=== PATIENT | female | born 1940 | race Caucasian/White ===

== ENCOUNTER → 2016-10-18 16:33 | Outpatient (CLI) | payer MEDICARE, OTHER ==
[2010-06-16 07:04] VITALS: BMI 38.5
[~2016-10-18 16:33] MED LIST: CIPRO500 MG PO; DESERYL100 MG PO; DILAUDID2 MG PO; EFFEXOR37.5 MG PO; GLUCOPHAGE500 MG PO; LISINOPRIL5 MG PO; MACROBID100 MG; NEXIUM40 MG PO; PEPCID AC20 MG PO; PROTONIX40 MG PO; ZOCOR40 MG PO
[2016-12-07 08:21] VITALS: BMI 35.4
== END | disposition home or self-care (01) ==
LOC: D.MAMMO 13:45
DX: Z12.31 Encounter for screening mammogram for malignant neoplasm of breast (principal)

== ENCOUNTER 2016-12-07 06:54 | Day surgery (SDC) | payer MEDICARE, OTHER ==
[~2016-12-07] VITALS: Ht 154.9 cm; Wt 84.8 kg
[2016-12-07 08:04] LABS: HEMATOCRIT 43.5 % (36.0-48.0); HEMOGLOBIN 14.3 g/dL (12-16); MCH 29.3 pg (26.0-34.0); MCHC 32.9 g/dL (31.0-37.0); MCV 89.1 fL (80.0-100.0); MEAN PLATELET VOLUME 10.8 fL (7.4-10.4); RBC 4.88 10x6/uL (4.00-5.40); RDW 15.5 % (11.5-14.5); WBC 11.3 10x3/uL (4.8-10.8)
[2016-12-07 08:15] LABS: CALC OSMOLALITY 286 mosm/kg (275-300); CALCIUM 9.1 mg/dL (8.5-10.1); CARBON DIOXIDE 30.1 mmol/L (21.0-32.0); CHLORIDE - SERUM 105 mmol/L (98-107); CREATININE - SERUM 0.7 mg/dL (0.6-1.3); GLUCOSE 187 mg/dL (74-106); POTASSIUM - SERUM 4.1 mmol/L (3.5-5.1); SODIUM 141 mmol/L (136-145); UREA NITROGEN 14 mg/dL (7-18); eGFR NON AFRICAN AMERICAN 86 mL/min (90-120)
[2016-12-07 08:21] VITALS: BP 121/68; Ht 154.9 cm; Wt 84.8 kg
[2016-12-07] MEDS ORDERED: NEXIUM40 MG PO (08:38)
[2016-12-07] MEDS ORDERED: PROTONIX40 MG PO (08:38)
[2016-12-07] MEDS ORDERED: LISINOPRIL5 MG PO (08:39)
[2016-12-07] MEDS ORDERED: MACROBID100 MG (08:40)
[2016-12-07] MEDS ORDERED: GLUCOPHAGE500 MG PO (08:40)
[2016-12-07] MEDS ORDERED: EFFEXOR37.5 MG PO (08:41)
[2016-12-07] MEDS ORDERED: CIPRO500 MG PO (08:41)
[2016-12-07] MEDS ORDERED: PEPCID AC20 MG PO (08:42)
[2016-12-07] MEDS ORDERED: DESERYL100 MG PO (08:42)
[2016-12-07] MEDS ORDERED: ZOCOR40 MG PO (08:43)
[2016-12-07] MEDS ORDERED: DILAUDID2 MG PO (09:53)
--- NOTE | 2016-12-07 10:17 | NUR ---
THE PATIENT REQUESTS A SHORT RECOVERY STAY SO SHE CAN GO HOME.
--- NOTE | 2016-12-07 10:47 | NUR ---
1040 DAUGHTER HAS RETURNED TO ROOM. DR. BREEN PAGED AND RETURNED CALL AND SPOKE WITH DAUGHTER.
--- NOTE | 2016-12-16 13:21 | OP ---
PATIENT NAME: RADHA LOCKE MEDICAL RECORD: [id number] :41 LOCATION:D.OPS ADMISSION DATE: SURGEON: MACY BREEN MD DATE OF OPERATION: 12/07/2016 PREOPERATIVE DIAGNOSES: 1. Right labial abscess. 2. Diabetes mellitus. 3. Gastroesophageal reflux disease. 4. Hypertension. 5. Hypercholesterolemia. POSTOPERATIVE DIAGNOSES: 1. Right labial abscess. 2. Diabetes mellitus. 3. Gastroesophageal reflux disease. 4. Hypertension. 5. Hypercholesterolemia. PROCEDURE: I&D of right labia. SURGEON: Macy Breen MD. REPORT OF PROCEDURE: The patient's right labia was prepped and draped in sterile fashion. The patient had a previous I&D by her primary care physician and there is a longitudinal incision over the right labia. There were some fibrinous bands across this and these were opened up using a hemostat. As we penetrated into the wound cavity, I found no evidence of any purulent material. I was able to dilate the wound open up to where I can get my pinky finger in and then I was able to feel around. There was just a lot of inflammatory cellulitis, but no sign of any purulence or separate pus pocket. We irrigated out the wound thoroughly with peroxide and saline solution and then packed it with half-inch packing strips. COMPLICATIONS: None. CONDITION: Stable. ANESTHESIA: General endotracheal. BLOOD LOSS: Minimal. TRANSINT:[id number] Voice Confirmation ID: [id number] DOCUMENT ID: [id number] MACY BREEN MD at 1321 CC: KALINA AGUILAR DO [id number] DICTATION DATE: 12/07/16 0956 AUDIO PRODUCTION INSTRUCTOR: 12/07/16 1026 [facility] 12/07/16 [place] [id number]
== END 2016-12-07 14:50 | disposition home or self-care (01) ==
LOC: D.OPS 06:54
PROVIDERS: Anesthesiology
DX: N76.4 Abscess of vulva (principal); E11.9 Type 2 diabetes mellitus without complications; K21.9 Gastro-esophageal reflux disease without esophagitis; I10 Essential (primary) hypertension; E78.00 Pure hypercholesterolemia, unspecified

== ENCOUNTER 2017-08-01 08:00 | Day surgery (SDC) | payer MEDICARE, OTHER ==
[~2017-08-01] VITALS: Ht 157.5 cm; Wt 86.2 kg
[~2017-08-01 08:00] MED LIST changes: +CALCIUM 600 +1 EAC3 PO; -DESERYL100 MG PO; -EFFEXOR37.5 MG PO; +EFFEXOR75 MG PO; +JANUMET 50-1,001 TAB PO; +MAGNESIUM OXID500 MG PO; +OMEPRAZOLE20 M1 PO; +REMERON15 MG PO; +TRAZODONE HCL50 MG PO; +VITAMIN B-121000 MCG PO; +VITAMIN B-6100 MG PO; +VITAMIN D31000 UNIT PO
[2017-08-01 09:34] VITALS: BP 119/78; Ht 157.5 cm; Wt 86.2 kg
[2017-08-01 09:52] LABS: BASOPHILS 0.8 % (0-2); EOSINOPHILS 0.9 % (0-7); HEMATOCRIT 43.8 % (36.0-48.0); HEMOGLOBIN 14.9 g/dL (12-16); IMMATURE GRANULOCYTES 0.3 % (0-5); LYMPHOCYTES 31.2 % (15-50); MCH 30.7 pg (26.0-34.0); MCV 90.1 fL (80.0-100.0); MEAN PLATELET VOLUME 13.6 fL (7.4-10.4); MONOCYTES 8.7 % (2-11); NEUTROPHILS 58.1 % (40-80); PLATELET COUNT 385 10x3/uL (130-400); RBC 4.86 10x6/uL (4.00-5.40); RDW 15.9 % (11.5-14.5); WBC 9.9 10x3/uL (4.8-10.8)
[2017-08-01] MEDS ORDERED: DILAUDID2 MG PO (10:52)
--- NOTE | 2017-08-01 12:25 | NUR ---
DILAUDID 2 MG PO GIVEN FOR PAIN. TOLERATED FULL LIQ DIET.
--- NOTE | 2017-08-01 14:07 | NUR ---
1355 DRESSED. AWAKE & ALERT. GIVEN RX: DILAUDID 2MG PO, MED REC., RTC APPT., [facility] OPS D/C INSTRUCTIONS. PROVIDED WITH SITZ BATH & INSTRUCTED HOW TO USE IT. PT VOICED UNDERSTANDING OF D/C INSTRUCTIONS. TO PRIVATE CAR PER WHEELCHAIR BY VOLUNTEER. HOME WITH , MR. LOCKE. Melissa BROWNE R.N.
--- NOTE | 2017-08-01 14:51 | OP ---
PATIENT NAME: RADHA LOCKE MEDICAL RECORD: [id number] :41 LOCATION:D.OPS ADMISSION DATE: SURGEON: KAVEH BREEN MD DATE OF OPERATION: 08/01/2017 PREOPERATIVE DIAGNOSES: 1. Internal hemorrhoids. 2. Anal condyloma. 3. Fibromyalgia. 4. Asthma. 5. Peptic ulcer disease. POSTOPERATIVE DIAGNOSES: 1. Internal hemorrhoids. 2. Anal condyloma. 3. Fibromyalgia. 4. Asthma. 5. Peptic ulcer disease. PROCEDURE: 1. Excision of anal condyloma. 2. Internal hemorrhoid banding times 2. SURGEON: Kaveh Breen MD REPORT OF PROCEDURE: The patient was placed in lithotomy position and the perianal region was prepped and draped in sterile fashion. The patient had a large anal condyloma present at 1 o'clock position. This was excised at its base using electrocautery. We then treated the base of the wound with electrocautery and irrigated it out with normal saline. The patient's anus was then inspected in an 360 degree fashion using a Hill-Montano anoscope. The patient had an internal hemorrhoid on the right anterior aspect and this was treated with hemorrhoidal banding. The patient also had some redundant tissue in the left posterior anus at the 5 o'clock position with what appeared to be a small internal hemorrhoid. This was treated with a hemorrhoid band and pulled down some of the redundant tissue into the anus at that point. There were no signs of any other internal hemorrhoids present. We then infused a total of 5 mL of 0.25% Marcaine with epinephrine into the surrounding tissues. COMPLICATIONS: None. CONDITION: Stable. ANESTHESIA: General endotracheal and local. BLOOD LOSS: Minimal. TRANSINT:[id number] Voice Confirmation ID: [id number] DOCUMENT ID: [id number] OPERATIVE REPORT [id number] LOCKEKERRY ROQUEKAVEH HUMPHREY MD at 1451 CC: KALINA AGUILAR DO [id number] DICTATION DATE: 08/01/17 1050 [employer] OCE[employer] CLAMMER: 08/01/17 [address] [place] [address]
== END 2017-08-01 13:55 | disposition home or self-care (01) ==
LOC: D.OPS 08:00 → D.PAN 10:15 → D.OPS 10:15
PROVIDERS: Surgery
DX: K64.8 Other hemorrhoids (principal); A63.0 Anogenital (venereal) warts; M79.7 Fibromyalgia; J45.909 Unspecified asthma, uncomplicated; K27.9 Peptic ulcer, site unspecified, unspecified as acute or chronic, without hemorrhage or perforation; Z01.812 Encounter for preprocedural laboratory examination

== ENCOUNTER 2017-08-17 13:45 | Emergency (ER) | payer MEDICARE, OTHER ==
[2017-08-01 09:34] VITALS: BMI 34.8
== END 2017-08-17 17:00 | disposition home or self-care (01) ==
LOC: D.ER 13:45
DX: S22.42XA Multiple fractures of ribs, left side, initial encounter for closed fracture (principal); W01.0XXA Fall on same level from slipping, tripping and stumbling without subsequent striking against object, initial encounter; Y93.89 Activity, other specified; Y92.029 Unspecified place in mobile home as the place of occurrence of the external cause; I10 Essential (primary) hypertension

== ENCOUNTER 2017-08-28 00:38 | Inpatient (IN) | payer MEDICARE, OTHER ==
[~2017-08-28] VITALS: Ht 154.9 cm; Wt 85.0 kg
[2017-08-28 02:31] LABS: BASOPHILS 0.5 % (0-2); EOSINOPHILS 0.2 % (0-7); HEMATOCRIT 44.2 % (36.0-48.0); HEMOGLOBIN 14.7 g/dL (12-16); IMMATURE GRANULOCYTES 0.4 % (0-5); LYMPHOCYTES 13.5 % (15-50); MCH 30.2 pg (26.0-34.0); MCHC 33.3 g/dL (31.0-37.0); MCV 90.9 fL (80.0-100.0); MEAN PLATELET VOLUME 11.7 fL (7.4-10.4); MONOCYTES 4.3 % (2-11); NEUTROPHILS 81.1 % (40-80); RBC 4.86 10x6/uL (4.00-5.40); WBC 15.4 10x3/uL (4.8-10.8)
[2017-08-28 02:38] LABS: PLATELET COUNT 300 10x3/uL (130-400)
[2017-08-28 02:45] LABS: ANION GAP 11.4 mmol/L (8-16); BILIRUBIN - TOTAL 0.26 mg/dL (0.2-1.3); CALCIUM 9.3 mg/dL (8.5-10.1); CREATININE - SERUM 0.8 mg/dL (0.6-1.3); MAGNESIUM - SERUM 1.9 mg/dL (1.8-2.4); POTASSIUM - SERUM 4.4 mmol/L (3.5-5.1); PROTEIN - SERUM 6.9 g/dL (6.4-8.2)
[2017-08-28] MEDS ORDERED: SYNTHROID25 MCG PO (05:18)
[2017-08-28] MEDS ORDERED: COLACE100 MG PO (05:19)
[2017-08-28 05:29] VITALS: BP 119/64; Ht 154.9 cm; Wt 85.0 kg
--- NOTE | 2017-08-28 07:20 | NUR ---
HARMONY DICK RESITED THE PATIENT'S IV IN HER L FA WITH A 22G ON THE SECOND ATTEMPT
--- NOTE | 2017-08-28 08:00 | NUR ---
REC'D IN BED AWAKE AND ALERT. NO DISTRESS NOTED. CAN EXPRESS NEEDS AND WANRS . ASSESMENT COMPLETED. C/L IN REACH AT BEDSIDE.
--- NOTE | 2017-08-28 09:16 | NUR ---
C/O RIGHT RIB PAIN RATING 7/10 ON PAIN SCALE . WAS MEDICATED WITH MORPHINE PER ORDERS. C/L IN REACH AT BEDSIDE.
[2017-08-28 09:57] VITALS: BP 143/65
[2017-08-28 12:57] VITALS: BP 121/51
[2017-08-28 13:20] LABS: APPEARANCE CLEAR (CLEAR); BILIRUBIN NEGATIVE (NEGATIVE); COLOR YELLOW (YELLOW); GLUCOSE 1000 mg/dL (NEGATIVE); KETONE NEGATIVE (NEGATIVE); NITRITE NEGATIVE (NEGATIVE); PROTEIN NEGATIVE (NEGATIVE); SPECIFIC GRAVITY 1.015 (1.005-1.020); UROBILINOGEN NORMAL (NORMAL)
[2017-08-28 16:31] VITALS: BP 120/54
--- NOTE | 2017-08-28 18:55 | NUR ---
PATIENT UP AMBULATING IN ROOM AT THIS TIME. IV INTACT. NO COMPLAINTS OR PROBLEMS. CALL LIGHT WITHIN REACH.
[2017-08-28 20:00] VITALS: BP 129/39
--- NOTE | 2017-08-28 23:54 | NUR ---
REC'D IN BED STATES I WET IN MY BRIEF.PERICARE GIVEN,PARTIAL LINEN FRANC.STOOD AT BEDSIDE WITH ASSIST BELKIS. WELL DENIES DIZZINESS AT PRESENT TIME.
[2017-08-29] VITALS: BP 120/42
[2017-08-29 04:00] VITALS: BP 130/45
[2017-08-29 06:37] LABS: BASOPHILS 0.9 % (0-2); EOSINOPHILS 2.6 % (0-7); HEMATOCRIT 44.8 % (36.0-48.0); HEMOGLOBIN 14.5 g/dL (12-16); IMMATURE GRANULOCYTES 0.5 % (0-5); LYMPHOCYTES 33.3 % (15-50); MCH 29.9 pg (26.0-34.0); MCHC 32.4 g/dL (31.0-37.0); MCV 92.4 fL (80.0-100.0); MEAN PLATELET VOLUME 11.6 fL (7.4-10.4); MONOCYTES 9.8 % (2-11); NEUTROPHILS 52.9 % (40-80); PLATELET COUNT 319 10x3/uL (130-400); RBC 4.85 10x6/uL (4.00-5.40); RDW 15.4 % (11.5-14.5)
[2017-08-29 06:42] LABS: WBC 9.3 10x3/uL (4.8-10.8)
[2017-08-29 06:46] LABS: CALC OSMOLALITY 279 mosm/kg (275-300); CALCIUM 9.2 mg/dL (8.5-10.1); CARBON DIOXIDE 29.8 mmol/L (21.0-32.0); CHLORIDE - SERUM 104 mmol/L (98-107); CREATININE - SERUM 0.7 mg/dL (0.6-1.3); POTASSIUM - SERUM 4.5 mmol/L (3.5-5.1); SODIUM 139 mmol/L (136-145); UREA NITROGEN 13 mg/dL (7-18); eGFR NON AFRICAN AMERICAN 86 mL/min (90-120)
[2017-08-29 06:47] LABS: GLUCOSE 140 mg/dL (74-106)
--- NOTE | 2017-08-29 08:00 | NUR ---
PT ASSESSMENT COMPLETE AWAKE AND ALERT ORIENTED X 3 LUNGS CLAER BILATERALLY ABD SOFT AND ROUND BSA X 4 QUADS PT UP IN WHEELCHAIR TO X RAY AT THIS TIME
[2017-08-29 08:45] VITALS: BP 130/68
[2017-08-29 12:41] VITALS: BP 131/43
--- NOTE | 2017-08-29 14:25 | NUR ---
PT SITTING UP IN BED WITH NO DISTRESS NOTED VOICES ALL NEEDS OT STAFF STATES PAIN AT 2 AT THIS TIME
--- NOTE | 2017-08-29 16:00 | NUR ---
PT WANTS IV RESITED THAT WAS SITED ON 08/28/17 DUE TO DISCOMFORT FLUSHES WELL AND DRAWS WELL NO REDNESS NTOED HOWEVER PT ADAMANT PIV RESITED TO RIGHT INNER FORARM 18 GA X 1 STICK TOLERATED WELL.
[2017-08-29 16:45] VITALS: BP 129/59
--- NOTE | 2017-08-29 16:59 | NUR ---
OT NOTE: PT COMPLETED DYNAMIC SITTING AND STANDING BALANCE WITH CGA. PT COMPLETED BED MOB WITH SPV. PT COMPLETED TOILETING WITH MIN A TO THREAD UNDERGARMENTS. THANK YOU, MILTON DEGROOT/Ekaterina
--- NOTE | 2017-08-29 20:59 | NUR ---
REC'D. IN BED CONTINUE TO COMPLAIN ABOUT IV SITE THAT WAS JUST RESITED AT 1830. EXCELLENT BLOOD RETURN.WILL CONTINUE TO MONITOR FOR ANY CHGES. AND FOLLOW CURRENT PLAN OF CARE.REINFORCED.TO CALL FOR ASSIST TO BATHRM. DO NOT GET UP ALONE.VOICES UNDERSTANDING
--- NOTE | 2017-08-30 02:30 | NUR ---
PT RESTING IN BED WITH NO DISTRESS. RESPIRATIONS EVEN AND UNLABORED. SIDE RAILS X 2. BED LOW. BED ALARM ON. CALL LIGHT IN REACH.
[2017-08-30 06:15] LABS: BASOPHILS 0.7 % (0-2); EOSINOPHILS 1.6 % (0-7); HEMATOCRIT 43.3 % (36.0-48.0); IMMATURE GRANULOCYTES 0.5 % (0-5); MCH 29.7 pg (26.0-34.0); MCHC 32.3 g/dL (31.0-37.0); MCV 91.7 fL (80.0-100.0); MEAN PLATELET VOLUME 11.9 fL (7.4-10.4); MONOCYTES 10.1 % (2-11); NEUTROPHILS 54.1 % (40-80); PLATELET COUNT 310 10x3/uL (130-400); RBC 4.72 10x6/uL (4.00-5.40); RDW 15.2 % (11.5-14.5); WBC 10.1 10x3/uL (4.8-10.8)
[2017-08-30 06:27] LABS: ALBUMIN 2.7 g/dL (3.4-5.0); ALKALINE PHOSPHATASE 102 U/L (46-116); ALT (SGPT) 13 U/L (10-68); BILIRUBIN - TOTAL 0.33 mg/dL (0.2-1.3); CALC OSMOLALITY 282 mosm/kg (275-300); CALCIUM 9.1 mg/dL (8.5-10.1); CHLORIDE - SERUM 104 mmol/L (98-107); CREATININE - SERUM 0.7 mg/dL (0.6-1.3); GLUCOSE 144 mg/dL (74-106); POTASSIUM - SERUM 4.1 mmol/L (3.5-5.1); PROTEIN - SERUM 6.4 g/dL (6.4-8.2); SODIUM 140 mmol/L (136-145); UREA NITROGEN 16 mg/dL (7-18); eGFR NON AFRICAN AMERICAN 86 mL/min (90-120)
--- NOTE | 2017-08-30 08:00 | NUR ---
REC'D IN AWAKE AND ALERT. RESP EVEN AND UNLABORED WITH NO DISTRESS NOTED. TAKE ALL PO MEDS WHOLE. ASSESSMENT COMPLETED. NO C/O NOTED OR VOICED. C/L IN REACH AT BEDSIDE.
[2017-08-30 09:36] VITALS: BP 149/53
[2017-08-30] MEDS ORDERED: FEXOFENADINE H180 MG PO (10:52)
--- NOTE | 2017-08-30 11:21 | NUR ---
CM SET UP HOME HEALTH WITH [facility] (SAME WHO HER USES PER HER REQUEST) AND ORDERED A WALKER WITH HCM (FAXED TO [facility])
--- NOTE | 2017-08-30 12:27 | NUR ---
Patient Name: RADHA LOCKE Admission Status: ER Accout number: [id number] Admission Date: 08-28-2017 : 1941 Admission Diagnosis: Attending: ZENAIDA LOVE Current LOS: 2 Anticipated DC Date: Planned Disposition: Primary Insurance: MEDICARE A & B Discharge Planning Comments: CM SPOKE WITH YARITZAMALIK AND CHIRAG, PATIENT'S AND DAUGHTER TO ASSESS DISCHARGE PLANNING NEEDS. PATIENT LIVES INDEPENDENTLY AT HOME WHERE SHE DOES EVERYTHING ON HER HOME. PATIENT DOES NOT HAVE ANY STEPS OR STAIRS TO ENTER IN HER HOME. WALKER WILL BE DELIVERED TO [facility] WILL BE SET UP PER HER REQUEST. CM WILL CONTINUE TO FOLLOW AND ASSIST WITH DISCHARGE PLANNING NEEDS PCP: JEFF SHAH (DAUGHTER) Night Nurse: Flores Butler
--- NOTE | 2017-08-30 12:40 | NUR ---
BS 134. NO COVERAGE NEEDED.
--- NOTE | 2017-08-30 15:31 | NUR ---
PT DISCHARGED WITH PERSONAL BELONGS AND D/C SUMMARY. VOICE UNDERSTANDING AT D/C.
--- NOTE | 2017-08-30 20:42 | NUR ---
OT NOTE: PT COMPLETED BED MOB AND EOB SITTING. PT EDUCATED ON HOME SAFETY AND FALL PREVENTION. THANK YOU, MILTON DEGROOT/Ekaterina
== END 2017-08-30 15:33 | disposition home or self-care (01) | DRG 149 ==
LOC: D.ER 00:38 → OBSVTIME 03:39 → D.MS 03:39
PROVIDERS: Emergency Medicine; ADMIT Family Medicine
DX: R42 Dizziness and giddiness (principal); E11.65 Type 2 diabetes mellitus with hyperglycemia; I10 Essential (primary) hypertension; F41.8 Other specified anxiety disorders; D72.829 Elevated white blood cell count, unspecified

== ENCOUNTER 2018-11-07 12:15 | Emergency (ER) | payer MEDICARE, OTHER ==
[~2018-11-07] VITALS: Ht 154.9 cm; Wt 82.7 kg
[~2018-11-07 12:15] MED LIST changes: +COLACE100 MG PO; +FEXOFENADINE H180 MG PO; +SYNTHROID25 MCG PO; +TRAZODONE HCL150 MG PO; -TRAZODONE HCL50 MG PO
[2018-11-07 12:21] VITALS: BP 156/64; Ht 154.9 cm; Wt 82.7 kg
== END 2018-11-07 13:36 | disposition home or self-care (01) ==
LOC: D.ER 12:15
DX: F43.23 Adjustment disorder with mixed anxiety and depressed mood (principal); E11.9 Type 2 diabetes mellitus without complications; M32.9 Systemic lupus erythematosus, unspecified; Z85.41 Personal history of malignant neoplasm of cervix uteri